=== PATIENT | female | born 1950 | race Caucasian/White ===

== ENCOUNTER 2020-07-04 14:59 | Emergency (ER) | payer OTHER, SELFPAY ==
[2020-07-04 15:06] VITALS: BP 164/79; PULSE 83; RESP 18; TEMP 36.3; O2SAT 99; BMI 23.6
--- NOTE | 2020-07-04 15:14 | DI.US.S_ITS ---
PROCEDURE: US PERIPH VENOUS LOW EXTREM RT INDICATIONS: RL calf pain TECHNIQUE: Real-time imaging, as well as color and pulse Doppler interrogation, were performed of the lower extremity deep veins from the inguinal ligament to the popliteal fossa. COMPARISON: None. FINDINGS: The common femoral, femoral and popliteal veins are normally compressible, and free of intraluminal thrombus. Color and pulse Doppler demonstrate normal phasic intraluminal flow. There is normal augmentation response to distal compression maneuver. No Wellington's cyst demonstrated. IMPRESSION: No sonographic evidence of deep venous thrombosis. Dictated by: Rob Lozada M.D. on 07/04/2020 at 15:39 Approved by: Rob Lozada M.D. on 07/04/2020 at 15:40
--- NOTE | 2020-07-04 16:51 | ED.LOWEXIN ---
HPI - Extremity Injury (Lower) <FRANKIE Andrade - Last Filed: 07/04/20 17:01> General Chief Complaint: Extremity Injury, Lower Stated Complaint: right lower leg, thinks she has a blood clot Time Seen by Provider: 07/04/20 16:01 Source: patient Mode of arrival: Family Vehicle Limitations: no limitations History of Present Illness HPI Narrative: The patient is a 69-year-old female nonsmoker with history of arthritis who presents with a chief complaint of right lower leg pain. She states that she has pain in the back of her leg behind her knee. She is concerned about a blood clot because she has varicosities in that region. She denies any abnormal chest pain or shortness of breath. She denies any recent immobility or surgeries. She denies any personal history of blood clots. Related Data Allergies Allergy/AdvReac Type Severity Reaction Status Date / Time No Known Drug Allergies Allergy Verified 07/04/20 15:11 Review of Systems <FRANKIE Andrade - Last Filed: 07/04/20 17:01> Review of Systems Narrative: GENERAL: Denies chills, fatigue, malaise, fever, sweats. HEENT: Denies sinus pain, ear pain, sore throat, difficulty swallowing, dizziness. RESPIRATORY: Denies dyspnea, cough, wheezing, hemoptysis, sputum. CARDIOVASCULAR: Denies chest pain, palpitations, orthopnea, edema, GASTROINTESTINAL: Denies nausea, vomiting, abdominal pain, diarrhea, constipation, melena. : Denies dysuria, frequency, incontinence, hematuria, urinary retention. MUSCULOSKELETAL: See HPI SKIN: Denies rash, skin lesions, or other NEUROLOGIC: Denies weakness, headache, numbness, change in speech, confusion, seizures, incoordination. PSYCHIATRIC: No concerning psychosocial issues. 12 point review of systems is negative except for those stated above Patient History <FRANKIE Andrade - Last Filed: 07/04/20 17:01> Social History Smoking Status: Never smoker Smoking Status: Never smoker alcohol intake frequency: 0-2 drinks per day Alcohol type: wine Substance Use Type: does not use Exam <FRANKIE Andrade - Last Filed: 07/04/20 17:01> Narrative Exam Narrative: GENERAL: This is a well-nourished, well-developed patient, in no acute distress HEAD: Atraumatic. Normocephalic. No temporal or scalp tenderness. EYES: Pupils equal round and reactive. Extraocular motions intact. No scleral icterus. No injection or drainage. ENT: Nose without bleeding, purulent drainage or septal hematoma. Throat without erythema, tonsillar hypertrophy or exudate. Uvula midline. Airway patent. NECK: Trachea midline. No JVD or lymphadenopathy. Supple, nontender, no meningeal signs. CARDIOVASCULAR: Regular rate and rhythm RESPIRATORY: Clear to auscultation. Breath sounds equal bilaterally. No wheezes, rales, or rhonchi. No cough. No increased respiratory effort. No accessory muscle use. EXTREMITIES: Positive pedal pulses bilaterally. Slight tenderness to pain to palpation of right gastroc. Slight varicosities noted. Patient ambulating with steady gait. BACK: Nontender without deformity or crepitance. No flank tenderness. NEURO: AOx3. SKIN: No rash or erythema on visible skin. No erythema laceration or abrasion noted right lower leg Initial Vital Signs Initial Vital Signs: Vital Signs Temperature 97.3 F L 07/04/20 15:06 Pulse Rate 83 07/04/20 15:06 Respiratory Rate 18 07/04/20 15:06 Blood Pressure 164/79 H 07/04/20 15:06 Pulse Oximetry 99 07/04/20 15:06 <Kendra Silver DO - Last Filed: 07/05/20 07:45> Initial Vital Signs Initial Vital Signs: Vital Signs Temperature 97.3 F L 07/04/20 15:06 Pulse Rate 83 07/04/20 15:06 Respiratory Rate 18 07/04/20 15:06 Blood Pressure 164/79 H 07/04/20 15:06 Pulse Oximetry 99 07/04/20 15:06 Scores <FRANKIE Andrade - Last Filed: 07/04/20 17:01> GCS Tripp coma scale eye opening: Spontaneous Tripp coma scale verbal response: Orientated Tripp coma scale motor response: Obey commands Tripp coma scale total score: 15 Course <FRANKIE Andrade - Last Filed: 07/04/20 17:01> Orders Ordered: ED Orders 07/04/20 15:14 US periph venous low extrem rt Stat Vital Signs Vital signs: Vital Signs - 8 hr 07/04/20 15:06 07/04/20 16:56 Temperature 97.3 F L Pulse Rate 83 79 Respiratory Rate 18 16 Blood Pressure 164/79 H 161/73 H Pulse Oximetry 99 98 <Kendra Silver DO - Last Filed: 07/05/20 07:45> Orders Ordered: ED Orders 07/04/20 15:14 US periph venous low extrem rt Stat Vital Signs Vital signs: Vital Signs - 8 hr 07/04/20 15:06 07/04/20 16:56 Temperature 97.3 F L Pulse Rate 83 79 Respiratory Rate 18 16 Blood Pressure 164/79 H 161/73 H Pulse Oximetry 99 98 MDM - Extremity Injury (Lower) <DIANE AndradeBC - Last Filed: 07/04/20 17:01> Imaging Data US - DVT: Radiologist's Impression: [address] [id number] Ultrasound Report Signed Patient: Dolores Li [facility]#: [id number] : 8Acct:[id number] Age/Sex: 69 / FDate of Service: 07/04/20 Loc: ED Accession Number: [id number] Procedure: US perip venous low extrem rt Ordering Provider: Kendra Silver D.O. PROCEDURE: US PERIPH VENOUS LOW EXTREM RT INDICATIONS: RL calf pain TECHNIQUE: Real-time imaging, as well as color and pulse Doppler interrogation, were performed of the lower extremity deep veins from the inguinal ligament to the popliteal fossa. COMPARISON: None. FINDINGS: The common femoral, femoral and popliteal veins are normally compressible, and free of intraluminal thrombus. Color and pulse Doppler demonstrate normal phasic intraluminal flow. There is normal augmentation response to distal compression maneuver. No Wellington's cyst demonstrated. IMPRESSION: No sonographic evidence of deep venous thrombosis. Dictated by: Rob Lozada M.D. on 07/04/2020 at 15:39 Approved by: Rob Lozada M.D. on 07/04/2020 at 15:40 [facility] Narrative Medical decision making narrative: The patient is a 69-year-old female who presents with a chief complaint of possible DVT of her right lower leg. Ultrasound is negative. Encouraged rest ice compression elevation as well as [id number] pain medications as needed and able. Encouraged follow-up with primary care provider regarding varicosities discussed coming back to the ER for any acute concerns such as chest pain shortness of breath concern of DVT PE etcetera. Patient has no questions or concerns upon discharge and states understanding return precautions as well as follow-up care. Discharge Plan Departure Patient Disposition: Home Clinical Impression: Right leg pain Discharge Date/Time: 07/04/20 16:56 Instructions: DI for Leg Pain Activity Restrictions/Additional Instructions: Thank you for trusting us with your care today. As discussed, your ultrasound came back negative for a blood clot. There is no evidence of deep vein thrombosis, no evidence of Wellington's cyst or any other abnormality Please use rest ice compression elevation as well as [id number] pain medications as needed and able. Please come back to the emergency department for any acute concerns Referrals: Linh Jack PA-C [Non-Staff] - <Kendra Silver DO - Last Filed: 07/05/20 07:45> Cosign ED Attending Corey Attestation: I was immediately available in the department for consultation. Documentation has been reviewed. I agree with assessment and plan.
[2020-07-04 16:56] VITALS: BP 161/73; PULSE 79; RESP 16; O2SAT 98
== END 2020-07-04 16:56 | disposition home or self-care (01) ==
PROVIDERS: Emergency Provider Nurse Practitioner Family
DX: M79.604 Pain in right leg (principal)
CPT/HCPCS: 93971; 99283

== ENCOUNTER → 2024-01-30 13:29 | Outpatient (CLI) | payer MEDICARE, SELFPAY ==
--- NOTE | 2024-01-30 13:30 | DI.RAD.S_ITS ---
PROCEDURE: XR DEXA AXIAL SKELETON INDICATIONS: Asymptomatic menopausal state COMPARISON: None. FINDINGS: Lumbar Spine: Bone mineral density 0.773 g/cm2, T score -2.5. Left Hip: Bone mineral density 0.643 g/cm2, T score -2.4. Left Femoral Neck: Bone mineral density 0.479 g/cm2, T score -3.3. Right Hip: Bone mineral density 0.624 g/cm2, T score -2.6. Right Femoral Neck: Bone mineral density 0.526 g/cm2, T score -2.9. Fracture Risk Calculation (when applicable): 10-year fracture risk of a major osteoporotic fracture 59% and of a hip fracture 47%. (T score greater or equal to -1.0 to: NORMAL) (T score from -1.1 to -2.4: OSTEOPENIA) (T score less than or equal to -2.5: OSTEOPOROSIS) IMPRESSION: 1. Osteopenia of the lumbar spine. 2. Osteoporosis of the bilateral femoral necks. Follow-up guidelines as follows: Osteoporosis: Consider a repeat DEXA and Vertebral Fracture Assessment (VFA) exam in 2 years or sooner if medically necessary, to reassess this patient's status. Osteopenia: Consider a repeat DEXA in 2-3 years to reassess this patient's status, or if there is a new clinical indication. Normal: Consider a repeat DEXA in 5 years or sooner, or if there is a new clinical indication. Dictated by: Jennifer Horta M.D. on 01/30/2024 at 16:14 Approved by: Jennifer Horta M.D. on 01/30/2024 at 16:15
== END ==
PROVIDERS: PCP Physician Assistant Medical; Referring Provider Physician Assistant Medical; Visit Provider Physician Assistant Medical
DX: M81.0 Age-related osteoporosis without current pathological fracture (principal); Z78.0 Asymptomatic menopausal state
CPT/HCPCS: 77080